=== PATIENT | female | born 1985 | race Caucasian/White ===

== ENCOUNTER 2017-04-05 22:02 | Outpatient (CLI) | payer BC ==
[~2017-04-05] VITALS: Ht 177.8 cm; Wt 86.4 kg
[2017-04-05 22:33] LABS: AMNI OBC PASS; AMNISURE NEGATIVE (NEGATIVE)
[2017-04-05 22:54] VITALS: BP 127/79
== END 2017-04-05 23:14 | disposition home or self-care (01) ==
LOC: LDOP 22:02
PROVIDERS: ATTEND Obstetrics & Gynecology
DX: O42.92 Full-term premature rupture of membranes, unspecified as to length of time between rupture and onset of labor (principal); Z3A.37 37 weeks gestation of pregnancy
CPT/HCPCS: 59025; 84112; 89060; 99211; G0463; Q0114

== ENCOUNTER 2017-04-14 19:44 | Inpatient (IN) | payer BC ==
[~2017-04-14] VITALS: Ht 177.8 cm; Wt 86.4 kg
[2017-04-14] MEDS ORDERED: OXYTOCIN 30U/ 0.9% NaCL 500ML 500 ML IV ONE (19:54)
[2017-04-14] MEDS ORDERED: FENTANYL PF 100 MCG/2ML IV PRN (20:00)
[2017-04-14] MEDS ORDERED: ONDANSETRON 2MG/ML, 2ML IVPush PRN (20:00)
[2017-04-14] MEDS ORDERED: FENTANYL PF 100 MCG/2ML IVPush PRN (20:00)
[2017-04-14] MEDS: LACTATED RINGERS 1,000 ML IV SCH ×4 (20:25→21:44)
[2017-04-14] MEDS: PLEASE ENTER HEIGHT AND WEIGHT MC SCH (20:30)
[2017-04-14] MEDS: PLEASE ENTER ALLERGIES MC SCH ×2 (20:30)
[2017-04-14] MEDS ORDERED: NEWBORN KIT ONE (20:32)
[2017-04-14] MEDS ORDERED: FENTANYL/BUPIV./NS/PF 250 ML EPIDCONT ONE ×2 (20:47→20:48)
[2017-04-14] MEDS ORDERED: LIDOCAINE/PF 1.5%-EPI 1:200K, 30ML ONE (20:48)
[2017-04-14] MEDS ORDERED: LIDOCAINE 1%, 20ML ONE (20:48)
[2017-04-14] MEDS ORDERED: FENTANYL/BUPIV./NS/PF 250 ML EPIDCONT SCH (21:44)
[2017-04-14] MEDS ORDERED: NALOXONE 0.4 MG/ML, 1ML IVPush PRN (22:00)
[2017-04-14] MEDS ORDERED: LACTATED RINGERS 1,000 ML IVBOLUS PRN (22:00)
[2017-04-14] MEDS ORDERED: EPHEDRINE 50 MG/ML, 1ML IVPush PRN (22:00)
[2017-04-14 22:07] VITALS: BP 117/85
[2017-04-14] MEDS ORDERED: OXYTOCIN 30U/ 0.9% NaCL 500ML 500 ML ONE (22:15)
[2017-04-15 01:10] VITALS: BP 109/72
[2017-04-15] MEDS ORDERED: OXYTOCIN 30U/ 0.9% NaCL 500ML 500 ML IV SCH (01:28)
[2017-04-15] MEDS ORDERED: CALCIUM CARBONATE 500 MG TAB.CHEW PO PRN (01:30)
[2017-04-15] MEDS ORDERED: ACETAMINOPHEN 325 MG TABLET PO PRN ×2 (01:30)
[2017-04-15] MEDS ORDERED: DOCUSATE 100 MG CAPSULE PO PRN (01:30)
[2017-04-15] MEDS ORDERED: DIPH,PERTUSS(ACELL),TET VAC/PF NC IM-VACC PRN (01:30)
[2017-04-15] MEDS ORDERED: ONDANSETRON 2MG/ML, 2ML IV PRN (01:30)
[2017-04-15] MEDS ORDERED: OXYcodone/APAP 5/325MG TABLET PO PRN ×2 (01:30)
[2017-04-15 03:45] VITALS: BP 105/66
[2017-04-15] MEDS: PLEASE ENTER HEIGHT AND WEIGHT MC SCH (04:30)
[2017-04-15] MEDS: PLEASE ENTER ALLERGIES MC SCH ×2 (04:30)
[2017-04-15] MEDS: LACTATED RINGERS 1,000 ML IV SCH (05:44)
[2017-04-15 06:50] VITALS: BP 109/73
[2017-04-15] MEDS ORDERED: PRENATAL VIT/IRON/FA 1 EACH TABLET PO SCH (09:00)
[2017-04-15 11:45] VITALS: BP 119/74
[2017-04-15] MEDS: IBUPROFEN 600 MG TABLET PO PRN ×2 (14:13→14:25)
[2017-04-15] MEDS ORDERED: PREN-1 PO (15:57)
[2017-04-15 16:00] VITALS: BP 106/69
== END 2017-04-15 20:00 | disposition home or self-care (01) | DRG 775 ==
LOC: LDOP 19:44 → LDIP 19:59 → 2NW 04-15 00:59
PROVIDERS: ADMIT Obstetrics & Gynecology; ATTEND Obstetrics & Gynecology
PROC: 10E0XZZ Delivery of Products of Conception, External Approach (ICD-10-PCS; principal; 2017-04-14)
PROC: 3E0R3CZ (ICD-10-PCS; 2017-04-14)
PROC: 00HU33Z Insertion of Infusion Device into Spinal Canal, Percutaneous Approach (ICD-10-PCS; 2017-04-14)
DX: O62.3 Precipitate labor (principal); O77.0 Labor and delivery complicated by meconium in amniotic fluid; Z37.0 Single live birth; Z3A.38 38 weeks gestation of pregnancy; Z87.440 Personal history of urinary (tract) infections; Z23 Encounter for immunization
CPT/HCPCS: 36415; 85025; 86850; 86900; 90715; J3490; J3010; J7120